=== PATIENT | female | born 1955 | race Caucasian/White ===

== ENCOUNTER 2021-03-28 00:51 | Emergency (ER) | payer MEDICARE, MEDICAID ==
[~2021-03-28] VITALS: Ht 170.2 cm; Wt 74.8 kg
--- NOTE | 2021-03-28 01:06 | NUR ---
[facility] FROM SNF, TO ER BED 10. AAOX4. NOT IN RESP DISTRESS. BROUGHT IN FOR AN ABNORNAL X XRAY RESULT. POSSIBLE INCOMPLETE NON DISPLACED FX OF LEFT FEMORAL NECK, NEEDS CT. PAIN IS COMPLAINED ON R HIP. RECEICVED DANIA SKILLED TRADES TEACHER. AWAITING MD FOR EVAL.
--- NOTE | 2021-03-28 01:35 | NUR ---
BLOOD COLLECTED AND SENT TO LAB
--- NOTE | 2021-03-28 01:40 | NUR ---
PATIENT GOING TO CT.
--- NOTE | 2021-03-28 01:53 | NUR ---
PATIENT BACK FROM CT
--- NOTE | 2021-03-28 02:56 | NUR ---
PT IS ABLE TO AMBULATE WITH AN AIDE OF A FRONT WHEELED WALKER.
--- NOTE | 2021-03-28 03:37 | NUR ---
REPORT GIVEN TO KANDY AT [facility]. ETA FOR [facility]: [phone]
--- NOTE | 2021-03-28 07:07 | NUR ---
[facility] AT BED SIDE TO SUPERVISOR ELEMENTARY EDUCATION THE PT
[2021-03-28 07:20] VITALS: BP 139/78
== END 2021-03-28 07:21 | disposition home or self-care (01) ==
LOC: ER 00:55
DX: M25.551 Pain in right hip (principal); W06.XXXA Fall from bed, initial encounter; Y93.89 Activity, other specified; Y92.89 Other specified places as the place of occurrence of the external cause; Y99.8 Other external cause status
CPT/HCPCS: 36415; 72192-TC

== ENCOUNTER 2022-07-10 14:12 | Inpatient (IN) | payer MEDICARE, OTHER ==
[~2022-07-10] VITALS: Ht 162.6 cm; Wt 71.4 kg
--- NOTE | 2022-07-10 14:40 | NUR ---
PAtient AOx4 able to expressher concerns. Patient is upset states she does not want to answer any questions, states she has already provided information multiple time. Will try to assess later.
--- NOTE | 2022-07-10 14:50 | NUR ---
No signs of distress, states pain all over body 10/21
[2022-07-10] MEDS ORDERED: OLANZAPINE 10 MG VIAL IM ONE ×2 (14:58→15:00)
[2022-07-10 15:00] LABS: BASOPHILS % (AUTO) 0.6 % (0.0-2.0); EOSINOPHILS % (AUTO) 2.8 % (0.0-6.0); HEMATOCRIT 38 % (33-45); HEMOGLOBIN 12.4 g/dL (11.5-14.8); LYMPHOCYTES # (AUTO) 0.8 K/uL (0.8-4.8); LYMPHOCYTES % (AUTO) 15.4 % (20.0-44.0); MEAN CORPUSCULAR HGB CONC 33 g/dl (31.0-36.0); MEAN CORPUSCULAR VOLUME 93 fL (82-100); MONOCYTES # (AUTO) 0.5 K/uL (0.1-1.30); NEUTROPHILS # (AUTO) 3.7 K/uL (1.8-8.9); NEUTROPHILS % (AUTO) 71.2 % (43.0-81.0); PLATELET COUNT (AUTO) 162 K/uL (150-450); RED BLOOD CELL COUNT(AUTO) 4.07 MIL/uL (4.0-5.2); WHITE BLOOD COUNT (AUTO) 5.2 K/uL (4.3-11.0)
[2022-07-10 15:14] LABS: ACETAMINOPHEN < 10 ug/ml (10-30); ALANINE AMINOTRANSFERASE 14 U/L (12-78); ALBUMIN 3.7 g/dL (3.4-5.0); ALCOHOL, BLOOD < 3 mg/dL (0-0); ALKALINE PHOSPHATASE 73 U/L (46-116); ASPARTATE AMINOTRANSFERASE 18 U/L (15-37); BILIRUBIN,DIRECT 0.1 mg/dL (0.0-0.2); BILIRUBIN,TOTAL 0.4 mg/dL (0.2-1.0); CALCIUM, SERUM 9.1 mg/dL (8.5-10.1); CARBON DIOXIDE 28 mmol/L (21-32); CHLORIDE 106 mmol/L (98-107); GLUCOSE 111 mg/dL (74-106); POTASSIUM 3.9 mmol/L (3.5-5.1); SODIUM SERUM 142 mmol/L (136-145); TOTAL PROTEIN, SERUM 7.2 g/dL (6.4-8.2); UREA NITROGEN, BLOOD 19 mg/dL (7-18)
[2022-07-10] MEDS ORDERED: LOSA50TA39 PO (15:36)
[2022-07-10] MEDS ORDERED: GABA600T12 PO (15:36)
[2022-07-10] MEDS ORDERED: BUPR150T10 PO (15:36)
[2022-07-10] MEDS ORDERED: PANT40TA2 PO (15:36)
[2022-07-10] MEDS ORDERED: ESCI10TA PO (15:36)
[2022-07-10] MEDS ORDERED: TIOT18CA3 IH (15:36)
[2022-07-10] MEDS ORDERED: DOCU-141 PO (15:36)
[2022-07-10] MEDS ORDERED: ALBU8.5H8 IH (15:36)
[2022-07-10] MEDS ORDERED: TRAM50TA2 PO (15:36)
[2022-07-10] MEDS ORDERED: DICL100G26 TP (15:36)
[2022-07-10] MEDS ORDERED: LUBI24CA5 PO (15:36)
[2022-07-10] MEDS ORDERED: TRAZ-182 PO (15:36)
[2022-07-10] MEDS ORDERED: HALO5TAB PO (15:36)
[2022-07-10] MEDS ORDERED: FLUT1BLS IH (15:36)
[2022-07-10] MEDS ORDERED: AMAN100T PO (15:36)
[2022-07-10] MEDS ORDERED: HYDR-3976 PO (15:36)
[2022-07-10] MEDS ORDERED: OXYC-128 PO (15:36)
[2022-07-10] MEDS ORDERED: FURO-145 PO (15:36)
[2022-07-10] MEDS ORDERED: OLAN10TA3 PO (16:27)
--- NOTE | 2022-07-10 16:29 | NUR ---
CALLED [facility] FOR TRANSPORT ETA [phone]
--- NOTE | 2022-07-10 16:48 | NUR ---
Discussed discharge plan with pt, verbalized agreement. Signed form, pending transport greens picker.
--- NOTE | 2022-07-10 19:05 | NUR ---
REC'D REPORT FROM DONTE GUTIERREZ FOR DELMY
--- NOTE | 2022-07-10 19:16 | NUR ---
REPORT GIVEN TO STEPHEN FOR CONTINUATION OF CARE
--- NOTE | 2022-07-10 20:02 | NUR ---
MOVE SHEET SUBMITTED.
[2022-07-10] MEDS ORDERED: ZOLPIDEM TARTRATE 5 MG TABLET PO PRN (21:30)
[2022-07-10] MEDS ORDERED: MAG HYDROX/AL HYDROX/SIMETH 30 ML UDC PO PRN (21:30)
[2022-07-10] MEDS ORDERED: Z GUARD REMEDY 4 OZ OINT TP PRN (21:30)
[2022-07-10] MEDS ORDERED: ACETAMINOPHEN 325 MG TABLET PO PRN (21:30)
[2022-07-10] MEDS ORDERED: ONDANSETRON HCL/PF 4 MG/2 ML VIAL IVP PRN (21:30)
[2022-07-10] MEDS ORDERED: MAGNESIUM HYDROXIDE 30 ML UDC PO PRN (21:30)
[2022-07-10] MEDS ORDERED: IPRATROPIUM NEB FS 0.5 MG/2.5 ML AMPUL.NEB NEB PRN (21:30)
[2022-07-10] MEDS ORDERED: ALBUTEROL FS 2.5 MG/3 ML VIAL.NEB NEB PRN (21:30)
--- NOTE | 2022-07-10 21:47 | NUR ---
XRAY AT BEDSIDE
--- NOTE | 2022-07-10 22:33 | NUR ---
US AT BEDSIDE
--- NOTE | 2022-07-10 22:34 | NUR ---
PT REFUSED IV, HOSPITALIST AWARE. PER ACCOUNT MANAGER B2B, ML, PROTONIX CAN BE GIVEN PO
--- NOTE | 2022-07-10 22:40 | NUR ---
GAVE REPORT TO DONTE QUIJANO FOR DELMY
[2022-07-10 22:59] LABS: ALANINE AMINOTRANSFERASE 10 U/L (12-78); ALBUMIN 3.2 g/dL (3.4-5.0); ALKALINE PHOSPHATASE 63 U/L (46-116); ASPARTATE AMINOTRANSFERASE 15 U/L (15-37); BILIRUBIN,DIRECT 0.1 mg/dL (0.0-0.2); BILIRUBIN,TOTAL 0.3 mg/dL (0.2-1.0); MAGNESIUM 1.9 mg/dL (1.8-2.4); PHOSPHORUS 3.6 mg/dL (2.5-4.9); TOTAL PROTEIN, SERUM 6.3 g/dL (6.4-8.2)
[2022-07-10 23:00] VITALS: BP 99/57
[2022-07-10 23:02] LABS: CHOLESTEROL 120 mg/dL (<200); HDL CHOLESTEROL 44 mg/dL (40-60); LDL 73 mg/dL (0-99); THYROID STIMULATING HORMONE 2.275 uIU/mL (0.358-3.74); TRIGLYCERIDES 71 mg/dL (30-150)
--- NOTE | 2022-07-10 23:05 | NUR ---
ADMISSION 66 y/o female Alert Oriented x4. Patient with angry behavior upon arrival to unit. Irritable during admission. Skin checked done, no pressure injury. Lindsey to unit, room, unit staff. Oxygen sat mid 90's in RA, but patient demanded Oxygen. Denies chest pain. Call light device within reach, aware how to use it. Made comfortable in bed.
[2022-07-10] MEDS: ENOXAPARIN SODIUM 40 MG/0.4 ML DISP.SYRIN SQ SCH (23:29)
[2022-07-10] MEDS: LOSARTAN POTASSIUM 50 MG TABLET PO SCH (23:29)
--- NOTE | 2022-07-10 23:29 | NUR ---
ANTICOAGULANT H/H 12.4 Plt 162 No s/s of bleeding. Given Lovenox injection, co-signed by DONTE Vaz. Patient refused due medication Cozaar, declined education.
[2022-07-11] VITALS: BP 132/70
[2022-07-11 04:00] VITALS: BP 151/82
[2022-07-11 07:00] VITALS: BP 134/62
--- NOTE | 2022-07-11 07:20 | NUR ---
ELEMENTARY EDUCATION TUTOR OPENING NOTES RECEIVED PATIENT SLEEPING, EASILY AWAKEN, AOX4, PATIENT IS LABILE, SCREAMS EVEN AT THE SLIGHTEST REQUEST OR INCONVENIENCE, PATIENT IS ON 2LPM VIA NC WITHOUT BREATHING DIFFICULTY, SATURATING AT 98%. TELEMONITORING SHOWS SINUS RHYTHM WITH HR OF 70 BPM. NO ACUTE RESPIRATORY OR CARDIAC DISTRESS. PATIENT IS HAVING AUDITORY HALLUCINATIONS, PATIENT IS RESPONDING "SHUT-UP, SHUT-UP!" BEEN HAVING THAT SYMPTOMS FOR MONTHS, PATIENT DENIES SUICIDAL IDEATION, DENIED HOMICIDAL IDEATION WELL. PATIENT IS DENYING PAIN AT THIS MOMENT BUT WILL CONTINUE TO CHECK. NO IV ACCESS, PATIENT REFUSED IV DESPITE ENCOURAGEMENT AND EDUCATION. SAFETY PRECAUTIONS IN PLACE: BED IN LOWEST AND LOCKED POSITION, SIDE RAILS UP X2, TRAY TABLE AND CALL LIGHT WITHIN EASY REACH. WILL CONTINUE TO MONITOR.
--- NOTE | 2022-07-11 07:20 | NUR ---
END OF SHIFT REPORT Patient in bed, Alert Oriented x4. Sinus rhythm in the Tele monitor, HR high 80's. No IV line, patient refused insertion, declined education. Patient irritable with angry behavior. Swab nares for MRSA test, collected and send to lab. Oxygen sat 98% in RA, denies SOB, no c/o chest pain. Patient still demands to use Oxygen via NC. Consult for Psych for c/o hearing voices. Denies SI/HI. Has not voided as no urine specimen for test, patient refused to urinate, no c/o bladder discomfort. Care endorsed to Rodney for continuity of care.
[2022-07-11] MEDS: BUDESONIDE RESPULE INH 0.25 MG/2 ML AMPUL.NEB NEB SCH ×2 (07:30→20:15)
[2022-07-11] MEDS ORDERED: ALBUTEROL FS 2.5 MG/3 ML VIAL.NEB NEB SCH (07:35)
[2022-07-11] MEDS: AMANTADINE HCL 100 MG CAPSULE PO SCH ×2 (08:26→16:38)
[2022-07-11] MEDS: PANTOPRAZOLE 40 MG TABLET.DR PO SCH (08:26)
[2022-07-11] MEDS: DOCUSATE SODIUM 100 MG CAPSULE PO SCH ×2 (08:26→16:38)
[2022-07-11] MEDS: predniSONE 20 MG TABLET PO SCH (08:27)
[2022-07-11] MEDS: FUROSEMIDE 20 MG TABLET PO SCH (08:28)
[2022-07-11] MEDS: ESCITALOPRAM OXALATE (10 MG) 10 MG TABLET PO SCH (08:28)
[2022-07-11] MEDS: HYDROCODONE/APAP 5/325MG TABLET PO PRN ×3 (08:28→22:39)
--- NOTE | 2022-07-11 08:30 | NUR ---
RN NOTES - PATIENT COMPLAINING OF KNEE PAIN 7-11/21, PATIENT IS SCREAMING, MOANING, RESTLESS, GIVEN NORCO 5/325 MG PO, WILL CONTINUE TO MONITOR.
[2022-07-11] MEDS: GABAPENTIN 300 MG CAPSULE PO SCH ×3 (08:31→16:38)
--- NOTE | 2022-07-11 08:37 | NUR ---
RN NOTES - PATIENT REFUSED BLOOD DRAW FOR THE 2ND TIME, PATIENT WAS AGGRESSIVE AND SHOUTING "ENOUGH! ENOUGH!". CHARGE NURSE IS AWARE, PATIENT MIGHT ALSO BE MOVED TO ANOTHER ROOM ROOM MATE CANNOT REST.
[2022-07-11] MEDS: IPRATROPIUM NEB FS 0.5 MG/2.5 ML AMPUL.NEB NEB SCH ×4 (08:41→20:15)
--- NOTE | 2022-07-11 08:47 | NUR ---
RN NOTES - DC TELEMONITORING PER ORDER.
[2022-07-11] MEDS ORDERED: HALOPERIDOL 5 MG TABLET PO SCH (09:00)
[2022-07-11] MEDS ORDERED: PANTOPRAZOLE 40 MG VIAL IV SCH (09:00)
[2022-07-11] MEDS ORDERED: buPROPion SR 150 MG TABLET.ER PO SCH (09:00)
--- NOTE | 2022-07-11 09:55 | NUR ---
WOUND CARE CONSULT: PT PRESENTS WITH EXCORIATED AREA TO RT BUTTOCK AND SLIGHT RASH TO LEFT BUTTOCK, PRESENT ON ADMISSION. RECOMMENDATIONS MADE FOR SKIN PROTECTION AND SKIN CARE. DISCUSSED WITH NURSING STAFF. PT IS INCONTINENT. MD IN AGREEMENT WITH PLAN OF CARE.
[2022-07-11] MEDS: LEVOFLOXACIN (250MG) 250 MG TABLET PO SCH (11:06)
[2022-07-11] MEDS: HALOPERIDOL 5 MG TABLET PO SCH ×3 (11:47→16:38)
--- NOTE | 2022-07-11 12:04 | NUR ---
RN NOTES - PUREWICK APPLIED TO KEEP PATIENT DRY
[2022-07-11] MEDS: ALBUTEROL FS 2.5 MG/3 ML VIAL.NEB NEB SCH ×2 (12:33→20:15)
--- NOTE | 2022-07-11 12:53 | NUR ---
RN NOTES - HALDOL 5 MG WAS SCHEDULED AT 1200 EARLIER AND WAS GIVEN AT 1147. DR ESPINOZA CHANGE FROM BID TO TID. SHOWING AT 1300 AGAIN, CALLED PHARMACY AND CONFIRMED THAT IT WAS CHANGED. DIDN'T ADMINISTER 1300.
[2022-07-11 16:12] VITALS: BP 134/68
[2022-07-11] MEDS: CLOTRIMAZOLE 1% 15 GM TUBE TP SCH (16:38)
[2022-07-11] MEDS: OLANZAPINE 10 MG TABLET PO SCH (17:02)
--- NOTE | 2022-07-11 17:13 | NUR ---
RN NOTES - PATIENT COMPLAINING OF BILATERAL KNEE PAIN 5/10, PATIENT IS MOANING, GIVEN NORCO 5/325 MG PO, WILL CONTINUE TO MONITOR.
[2022-07-11] MEDS ORDERED: OLANZAPINE 10 MG TABLET PO SCH (18:00)
--- NOTE | 2022-07-11 18:46 | NUR ---
MS RN CLOSING NOTES PATIENT AWAKE WITH HOB ELEVATED, EASILY AWAKEN, AOX4, PATIENT IS MORE COOPERATIVE THIS TIME. STILL ON 2LPM VIA NC WITHOUT DIFFICULTY. PATIENT TOOK ALL DUE MEDS, DENIES AUDITORY HALLUCINATIONS. NO SI/HI REPORT.STILL NO IV ACCESS. PT REFUSED ALONG WITH LAB DRAWS.PT HAS PUREWICK ON. ALL DUE MEDS, ALL NEEDS MET. KEPT PATIENT SAFE. WILL ENDORSE TO TECHNICIAN TELECOMMUNICATION SYSTEMS RN.
--- NOTE | 2022-07-11 19:00 | NUR ---
RN OPENING NOTES PT IS ASLEEP IN BED. A/O X 4, ABLE TO MAKE NEEDS KNOWN. PT IS IN O2 INHALATION VIA NASAL CANNULA @ 2LPM TOLERATING WELL, BREATHING EVEN AND UNLABORED @ THIS TIME. PT HAS NO IV. SAFETY MEASURES IS IN PLACE. BED AT ITS LOWEST AND LOCKED POSITION. SIDE RAILS UP X 3. BEDSIDE TABLE AND CALL LIGHT IS EASY REACH. BED ALARM IS ON. WILL CONTINUE TO MONITOR PT ACCORDINGLY.
[2022-07-11 20:00] VITALS: BP 118/64
[2022-07-11] MEDS: LOSARTAN POTASSIUM 50 MG TABLET PO SCH (22:31)
[2022-07-11] MEDS: ENOXAPARIN SODIUM 40 MG/0.4 ML DISP.SYRIN SQ SCH (22:31)
[2022-07-12] MEDS: IPRATROPIUM NEB FS 0.5 MG/2.5 ML AMPUL.NEB NEB SCH ×4 (01:30→19:48)
[2022-07-12] MEDS: ALBUTEROL FS 2.5 MG/3 ML VIAL.NEB NEB SCH ×4 (01:30→19:48)
--- NOTE | 2022-07-12 06:40 | NUR ---
RN CLOSING NOTE PT IS ASLEEP AND RESTING COMFORTABLY IN BED. A/O X 4. PT IS IN O2 INHALATION VIA NASAL CANNULA @ 2LPM WITH NO S & SX OF RESPIRATORY DISTRESS @ THIS TIME, O2 SAT 98%. PT HAS NO IV. PUREWICK IN PLACE DRAINING YELLOW COLORED URINE WITH THE URINE NO URINE OUTPUT. PT IS KEPT CLEAN, DRY AND COMFORTABLE. ADMINISTERED MEDICATION ACCORDINGLY PER MD'S ORDER. SAFETY MEASURES IS IN PLACE. BED AT ITS LOWEST AND LOCKED POSITION. SIDE RAILS UP X 4. BEDSIDE TABLE AND CALL LIGHT IS EASY REACH. BED ALARM IS ON. WILL ENDORSE PT TO THE NEXT SHIFT FOR CONTINUITY OF CARE.
--- NOTE | 2022-07-12 07:18 | NUR ---
MS RN OPENING NOTES RECEIVED PATIENT SLEEPING, EASILY AWAKEN, AOX4, ANXIOUS. ON 2LPM VIA NC WITHOUT BREATHING DIFFICULTY, SATURATING AT 97%. PATIENT DENIES AUDITORY HALLUCINATIONS, SUICIDAL IDEATION, DENIED HOMICIDAL IDEATION AT THIS TIME. PAIN IS CONTROLLED AT THIS TIME. STILL WITH NO IV ACCESS, PATIENT REFUSED IV DESPITE ENCOURAGEMENT AND EDUCATION. SAFETY PRECAUTIONS IN PLACE: BED IN LOWEST AND LOCKED POSITION, SIDE RAILS UP X2, TRAY TABLE AND CALL LIGHT WITHIN EASY REACH. WILL CONTINUE TO MONITOR.
[2022-07-12] MEDS: BUDESONIDE RESPULE INH 0.25 MG/2 ML AMPUL.NEB NEB SCH ×2 (07:37→19:48)
[2022-07-12 08:00] VITALS: BP 127/58
[2022-07-12] MEDS: DOCUSATE SODIUM 100 MG CAPSULE PO SCH ×2 (08:16→16:42)
[2022-07-12] MEDS: AMANTADINE HCL 100 MG CAPSULE PO SCH ×2 (08:17→16:42)
[2022-07-12] MEDS: GABAPENTIN 300 MG CAPSULE PO SCH ×3 (08:17→16:42)
[2022-07-12] MEDS: PANTOPRAZOLE 40 MG TABLET.DR PO SCH (08:17)
[2022-07-12] MEDS: ESCITALOPRAM OXALATE (10 MG) 10 MG TABLET PO SCH (08:18)
[2022-07-12] MEDS: HALOPERIDOL 5 MG TABLET PO SCH ×3 (08:18→16:42)
[2022-07-12] MEDS: FUROSEMIDE 20 MG TABLET PO SCH (08:18)
[2022-07-12] MEDS: predniSONE 20 MG TABLET PO SCH (08:18)
[2022-07-12] MEDS: HYDROCODONE/APAP 5/325MG TABLET PO PRN ×2 (08:27→13:20)
[2022-07-12] MEDS: CLOTRIMAZOLE 1% 15 GM TUBE TP SCH ×2 (08:27→16:43)
--- NOTE | 2022-07-12 08:28 | NUR ---
RN NOTES - KNEE PAIN AND HALLUCINATIONS PATIENT COMPLAINING OF KNEE PAIN 09/21, PATIENT IS MOANING, RESTLESS, GIVEN NORCO 5/325 MG PO ORDERED. WILL CONTINUE TO MONITOR. PATIENT IS HEARD SHOUTING "SHUT UP, SHUT UP" AGAIN, CONFIRMED THAT SHE IS HAVING AUDITORY HALLUCATIONS AGAIN, DENIES SI/HI. MORNING PSYCH MEDS GIVEN ORDERED.
[2022-07-12] MEDS: LEVOFLOXACIN (250MG) 250 MG TABLET PO SCH (09:53)
[2022-07-12 12:00] VITALS: BP 118/70
--- NOTE | 2022-07-12 13:20 | NUR ---
RN NOTES - PATIENT COMPLAINING OF LEG PAIN 09/21, PATIENT IS MOANING, RESTLESS, WILL GIVE NORCO 5/325 MG PO ORDERED. WILL CONTINUE TO MONITOR.
[2022-07-12 16:00] VITALS: BP 103/52
[2022-07-12] MEDS: OLANZAPINE 10 MG TABLET PO SCH (17:05)
--- NOTE | 2022-07-12 18:55 | NUR ---
MS RN CLOSING NOTES PATIENT AWAKE WITH HOB ELEVATED, EASILY AWAKEN, AOX4, CALM, COOPERATIVE. STILL ON 2LPM VIA NC WITHOUT DIFFICULTY, BREATHING EVEN AND UNLABORED. PATIENT TOOK ALL DUE MEDS, DENIES DISRUPTIVE AUDITORY HALLUCINATIONS. STILL NO SI/HI REPORT.STILL NO IV ACCESS. STILL ON PUREWICK. ALL DUE MEDS, ALL NEEDS MET. KEPT PATIENT SAFE. WILL ENDORSE TO TECHNOLOGY INSTRUCTOR RN.
[2022-07-12 20:00] VITALS: BP 100/50
--- NOTE | 2022-07-12 20:23 | NUR ---
MS RN OPENING NOTES RECEIVED PATIENT ON BED ASLEEP, ON MODERATE HIGH BACK REST POSITION. HOOKED TO OXYGEN VIA NASAL CANNULA AT 2LPM SATURATING WELL. A/OX 4 WITH EPISODES OF FORGETFULNESS. NO IV ACCESS NOTED PATIENT REFUSED FOR ACCESS INSERTION. INCONTINENT WITH PUREWICK CONNECTED TO SUCTION MACHINE NOTED URINE OUTPUT. NO COMPLAIN OF PAIN OR ANY DISCOMFORT AT THIS TIME. BREATHING TREATMENT GIVEN ORDERED,KEPT BED ON LOWER LOCKED POSITION, KEPT SIDE RAILS UP X 3 ALL THE TIME. KEPT CALL LIGHT WITHIN AT REACH, WILL CONTINUE TO MONITOR FOR DELMY.
[2022-07-12] MEDS: ENOXAPARIN SODIUM 40 MG/0.4 ML DISP.SYRIN SQ SCH (21:06)
[2022-07-12] MEDS: LOSARTAN POTASSIUM 50 MG TABLET PO SCH (21:10)
[2022-07-13] VITALS: BP 105/67
[2022-07-13] MEDS: ALBUTEROL FS 2.5 MG/3 ML VIAL.NEB NEB SCH ×3 (00:53→13:38)
[2022-07-13] MEDS: IPRATROPIUM NEB FS 0.5 MG/2.5 ML AMPUL.NEB NEB SCH ×3 (00:53→13:38)
[2022-07-13 04:00] VITALS: BP 131/75
--- NOTE | 2022-07-13 06:00 | NUR ---
INTERVENTION NURSE NOTES REPEAT CBG OF 95 MG/DL, APPLE JUICE GIVEN AND TOLERATED BY THE PATIENT. WILL CONTINUE TO MONITOR. Addendum: 07/13/22 at 0635 by Rosy Soliman RN WRONG PATIENT, WRONG ENTRY. PLS NOTICE.
--- NOTE | 2022-07-13 06:32 | NUR ---
SENIOR CLINICAL PROJECT MANAGER CLOSING NOTES PATIENT IS IN BED, ASLEEP ON MODERATE HIGH BACK REST POSITION. HOOKED TO OXYGEN VIA NASAL CANNULA AT 2LPM SATURATING WELL. WITH IV ACCESS AT RIGHT HAND #20G WITH NS 1L AT 75ML/HR INFUSING WELL. NO COMPLAIN OF PAIN OR DISCOMFORT AT THIS TIME. ALL DUE MEDICATIONS GIVEN, ALL NEEDS ATTENDED. ATTACHED TO TELE MONITORING DEVICE. KEPT BED ON LOWER LOCKED POSITION. KEPT SIDE RAILS UP X 2 ALL THE TIME. MAINTAINED PATIENT ON BEDREST, KEPT CALL LIGHT WITHIN AT REACH. PLACED PATIENT ON PUREWICK CONNECTED TO SUCTION MACHINE. WILL CONTINUE TO ENDORSED TO AM SHIFT FOR DELMY. Addendum: 07/13/22 at 0635 by Rosy Soliman RN WRONG PATIENT,WRONG ENTRY. PLS NOTICE.
--- NOTE | 2022-07-13 06:35 | NUR ---
MS RN CLOSING NOTES PATIENT IS IN BED, ASLEEP A/O X 4 ON MODERATE HIGH BACK REST POSITION. HOOKED TO OXYGEN AT 2 LPM SATURATING WELL. NO COMPLAIN OF PAIN OR DISCOMFORT AT THIS TIME. WITH NO IV ACCESS NOTED PATIENT REFUSED. PM CARE RENDERED, ALL NEEDS ATTENDED. PATIENT IS IN PUREWICK CONNECTED TO SUCTION MACHINE NOTED URINE 550ML OUTPUT. KEPT BED ON LOWER LOCKED POSITION, KEPT SIDE RAILS UP X 2 ALL THE TIME. KEPT CALL LIGHT WITHIN AT REACH. PM CARE RENDERED, ALL NEEDS ATTENDED. WILL ENDORSED TO AM SHIFT FOR DELMY.
--- NOTE | 2022-07-13 07:58 | NUR ---
RN OPENING NOTE RECEIVED PATIENT IN BED AO x 4 FORGETFUL, ABLE TO RESPONDS PHYSICAL STIMULI. RESPIRATORY EVEN AND UNLABORED ON OXYGEN AT 2lS VIA NC. IN NO ACUTE RESPIRATORY DISTRESS OBSERVED. SKIN IS WARM TO TOUCH, KEEP CLEAN/DRY. KEPT ELEVATED HOB FOR ASPIRATION PRECAUTION AND FOR ENSURE AIRWAY, ALSO LOWEST BED POSITIONED. BED ALARM IS ON AT ALL THE TIME FOR SAFETY. CALL LIGHT WITHIN REACH, WILL CONTINUE TO MONITOR.
[2022-07-13 08:00] VITALS: BP 124/76
[2022-07-13] MEDS: BUDESONIDE RESPULE INH 0.25 MG/2 ML AMPUL.NEB NEB SCH (08:10)
[2022-07-13] MEDS: DOCUSATE SODIUM 100 MG CAPSULE PO SCH (08:56)
[2022-07-13] MEDS: PANTOPRAZOLE 40 MG TABLET.DR PO SCH (08:57)
[2022-07-13] MEDS: GABAPENTIN 300 MG CAPSULE PO SCH ×2 (08:57→14:06)
[2022-07-13] MEDS: AMANTADINE HCL 100 MG CAPSULE PO SCH (08:57)
[2022-07-13] MEDS: ESCITALOPRAM OXALATE (10 MG) 10 MG TABLET PO SCH (08:57)
[2022-07-13] MEDS: predniSONE 20 MG TABLET PO SCH (08:57)
[2022-07-13] MEDS: HALOPERIDOL 5 MG TABLET PO SCH ×2 (08:58→14:06)
[2022-07-13] MEDS: FUROSEMIDE 20 MG TABLET PO SCH (08:58)
[2022-07-13] MEDS: CLOTRIMAZOLE 1% 15 GM TUBE TP SCH (08:59)
[2022-07-13] MEDS: LEVOFLOXACIN (250MG) 250 MG TABLET PO SCH (10:00)
--- NOTE | 2022-07-13 12:00 | NUR ---
THE PATIENT RECIEVED D/C ORDER TO SNF. 2 fireworks assembler PICKED UP THE PATIENT TO THE [facility], HOWEVER, THE PATIENT REFUSED TO GO THE [facility], THE AMBULANCE LEFT. THE KUMAR/GRAHAM SPOKE WITH PATIENT AND ACCEPTED TO D/C TO THE [facility] FINALLY.
--- NOTE | 2022-07-13 13:29 | NUR ---
PATIENT D/C TO [facility] AND GIVEN REPORT SAROJ/DONTE.
--- NOTE | 2022-07-13 15:55 | NUR ---
2 OIL FIELD TESTER PICKED UP PATIENT AND GIVEN REPORT.THE PATIENT IN STABLE CONDITION, IN NO ACUTE RESPIRATORY DISTRESS OBSERVED. THE PATIENT REFUSED TO TAKE WOUND PICTURES.
[2022-07-13] MEDS ORDERED: HALOPERIDOL 5 MG TABLET PO SCH (22:00)
[2022-07-14] MEDS ORDERED: ESCITALOPRAM OXALATE (10 MG) 10 MG TABLET PO SCH (09:00)
== END 2022-07-13 16:00 | DRG 190 ==
LOC: ER 14:30 → TELE 22:31 → MED 07-11 09:57
PROVIDERS: ADMIT Nurse Practitioner Acute Care; ATTEND Internal Medicine
DX: J44.1 Chronic obstructive pulmonary disease with (acute) exacerbation (principal); J96.21 Acute and chronic respiratory failure with hypoxia; E86.0 Dehydration; Z20.822 Contact with and (suspected) exposure to COVID-19; I49.9 Cardiac arrhythmia, unspecified; Z79.51 Long term (current) use of inhaled steroids; Z79.899 Other long term (current) drug therapy; I11.0 Hypertensive heart disease with heart failure; I50.9 Heart failure, unspecified; R79.89 Other specified abnormal findings of blood chemistry; M19.90 Unspecified osteoarthritis, unspecified site; Z85.43 Personal history of malignant neoplasm of ovary; F41.9 Anxiety disorder, unspecified; R45.1 Restlessness and agitation; F32.A Depression, unspecified; F29 Unspecified psychosis not due to a substance or known physiological condition; F25.0 Schizoaffective disorder, bipolar type; F17.200 Nicotine dependence, unspecified, uncomplicated; I45.10 Unspecified right bundle-branch block; Z99.81 Dependence on supplemental oxygen
CPT/HCPCS: 36415; 71045-TC; 80048-TC; 80061-TC; 80076-TC; 83735-TC; 83880; 84100-TC; 84443-TC; 84484-TC; 85025-TC; 87081-TC; 93307-TC; 94799-TC; 97110-TC; 97530-TC; C9803; G0378; G0480; J1650; J3490